=== PATIENT | female | born 1935 | race Caucasian/White ===

== ENCOUNTER 2022-07-23 00:19 | Inpatient (IN) | payer MEDICARE, OTHER ==
[~2022-07-23] VITALS: Ht 147.3 cm; Wt 61.0 kg
--- NOTE | 2022-07-23 00:49 | NUR ---
BIBFAMILY FOR C/O ABD PAIN AND 4 EPISODES OF VOMITING AND NASUEA SINCE 1999. PT AWAKRE AND ALERT BREATHING UNLBAORED -C/P OR SOB. AMBULATORY WITH STEADY GAIT. PLACED ON MONITOR AND V/S WNL.
--- NOTE | 2022-07-23 00:49 | NUR ---
RAC #18G S/L BLOOD COLLECTED AND SENT TO LAB
[2022-07-23] MEDS ORDERED: ONDANSETRON HCL/PF 4 MG/2 ML VIAL ONE (00:51)
[2022-07-23] MEDS ORDERED: MORPHINE SULFATE INJ 4 MG/ML DISP.SYRIN ONE ×2 (00:51→02:51)
[2022-07-23] MEDS ORDERED: ONDANSETRON HCL/PF 4 MG/2 ML VIAL IVP ONE (01:00)
[2022-07-23] MEDS ORDERED: MORPHINE SULFATE INJ 2 MG/ML DISP.SYRIN IV ONE ×2 (01:00→03:00)
[2022-07-23] MEDS ORDERED: IV NS 0.9% 500 ML BAG IV ONE (01:00)
--- NOTE | 2022-07-23 01:03 | NUR ---
URINE COLLECTED AND SENT TO LAB
--- NOTE | 2022-07-23 01:10 | NUR ---
XRAY AT BEDSIDE
[2022-07-23 01:14] LABS: BASOPHILS % (AUTO) 0.2 % (0.0-2.0); EOSINOPHILS % (AUTO) 0.3 % (0.0-6.0); HEMATOCRIT 34 % (33-45); HEMOGLOBIN 11.1 g/dL (11.5-14.8); LYMPHOCYTES # (AUTO) 1.4 K/uL (0.8-4.8); LYMPHOCYTES % (AUTO) 13.8 % (20.0-44.0); MEAN CORPUSCULAR HGB CONC 33 g/dl (31.0-36.0); MEAN CORPUSCULAR VOLUME 99 fL (82-100); MONOCYTES # (AUTO) 0.6 K/uL (0.1-1.30); MONOCYTES % (AUTO) 5.8 % (2.0-12.0); NEUTROPHILS # (AUTO) 8.3 K/uL (1.8-8.9); NEUTROPHILS % (AUTO) 79.9 % (43.0-81.0); PLATELET COUNT (AUTO) 193 K/uL (150-450); RED BLOOD CELL COUNT(AUTO) 3.41 MIL/uL (4.0-5.2); WHITE BLOOD COUNT (AUTO) 10.4 K/uL (4.3-11.0)
--- NOTE | 2022-07-23 01:19 | NUR ---
PT BEING TRANSPORTED TO CT VIA WHEELCHAIR
[2022-07-23 01:20] LABS: CALCIUM, SERUM 9.5 mg/dL (8.5-10.1); CARBON DIOXIDE 26 mmol/L (21-32); CHLORIDE 104 mmol/L (98-107); CREATININE 1.2 mg/dL (0.6-1.3); GLUCOSE 207 mg/dL (74-106); POTASSIUM 4.3 mmol/L (3.5-5.1); SODIUM SERUM 139 mmol/L (136-145); UREA NITROGEN, BLOOD 27 mg/dL (7-18)
[2022-07-23 01:21] LABS: BILIRUBIN,URINE NEGATIVE (NEGATIVE); COLOR,URINE YELLOW (YELLOW); LEUKOCYTE ESTERASE ,URINE NEGATIVE (NEGATIVE); NITRITE, URINE NEGATIVE (NEGATIVE); PROTEIN,URINE 100 mg/dl (NEGATIVE); UGLUCOSE NEGATIVE (NEGATIVE); UROBILINOGEN,URINE 0.2 EU/dL (0.2)
[2022-07-23 01:24] LABS: BACTERIA,URINE Rare /HPF (None Seen); RBC,URINE 0-2 /HPF (0-2); SQUAMOUS EPITHELIAL CELL,UR Few /HPF (None Seen); WBC,URINE 0-2 /HPF (0-3)
[2022-07-23 01:27] LABS: ALANINE AMINOTRANSFERASE 21 U/L (12-78); ALBUMIN 4.5 g/dL (3.4-5.0); ALKALINE PHOSPHATASE 50 U/L (46-116); ASPARTATE AMINOTRANSFERASE 18 U/L (15-37); BILIRUBIN,DIRECT 0.1 mg/dL (0.0-0.2); BILIRUBIN,TOTAL 0.5 mg/dL (0.2-1.0); TOTAL PROTEIN, SERUM 8.2 g/dL (6.4-8.2)
[2022-07-23 01:28] LABS: LIPASE 2768 U/L (73-393)
--- NOTE | 2022-07-23 01:32 | NUR ---
PT RETURNED TO ER BED [address]
--- NOTE | 2022-07-23 01:39 | NUR ---
COVID ANTIGEN SWAB COLLECTED AND SENT TO LAB
[2022-07-23] MEDS ORDERED: ACET-73 PO (01:54)
[2022-07-23] MEDS ORDERED: MECL-159 PO (01:54)
[2022-07-23] MEDS ORDERED: NIFE-34 PO (01:54)
[2022-07-23] MEDS ORDERED: METF-440 PO (01:54)
[2022-07-23] MEDS ORDERED: ATOR40TA PO (01:54)
[2022-07-23] MEDS ORDERED: PROP15DR EACHEYE (01:55)
[2022-07-23] MEDS ORDERED: CALC-1321 PO ×2 (01:55)
[2022-07-23] MEDS ORDERED: CALC500T89 PO (01:55)
[2022-07-23] MEDS ORDERED: FLUT16SP BNOSTRILS (01:55)
[2022-07-23] MEDS ORDERED: SUCR1TAB PO (01:55)
[2022-07-23] MEDS ORDERED: CLOT15CR27 TP (01:55)
[2022-07-23] MEDS ORDERED: OMEP40CA21 PO (01:55)
[2022-07-23] MEDS ORDERED: TRAM50TA2 PO (01:55)
--- NOTE | 2022-07-23 02:01 | NUR ---
MOVE SHEET SUBMITTED
[2022-07-23] MEDS ORDERED: ACETAMINOPHEN 325 MG TABLET PO PRN (03:00)
[2022-07-23] MEDS ORDERED: ONDANSETRON HCL/PF 4 MG/2 ML VIAL IVP PRN (03:00)
[2022-07-23] MEDS ORDERED: ZOLPIDEM TARTRATE 5 MG TABLET PO PRN (03:00)
[2022-07-23] MEDS ORDERED: DEXTROSE 50%-WATER 50 ML DISP.SYRIN IV PRN (03:00)
[2022-07-23] MEDS ORDERED: Z GUARD REMEDY 4 OZ OINT TP PRN (03:00)
[2022-07-23] MEDS ORDERED: INSULIN REGULAR, HUMAN 100 UNIT/ML 3 ML VIAL SQ PRN (03:00)
[2022-07-23] MEDS ORDERED: MORPHINE SULFATE INJ 2 MG/ML DISP.SYRIN IV PRN (03:00)
--- NOTE | 2022-07-23 03:13 | NUR ---
US TECH AT BEDSIDE
[2022-07-23] MEDS: BLOOD SUGAR DIAGNOSTIC 1 EACH STRIP IN SCH ×3 (06:05→17:20)
[2022-07-23] MEDS: IV NS 0.9% 1,000 ML IV PRN (06:05)
--- NOTE | 2022-07-23 08:13 | NUR ---
PT RESTING COMFORTABLE IN BED, FAMILY AT BEDSIDE, ALL NEEDS ARE MET AT THIS TIME.
[2022-07-23] MEDS ORDERED: PANTOPRAZOLE 40 MG VIAL ONE (10:57)
[2022-07-23] MEDS: PANTOPRAZOLE 40 MG VIAL IV SCH (10:58)
--- NOTE | 2022-07-23 11:25 | NUR ---
GOT BED 312-2
--- NOTE | 2022-07-23 13:00 | NUR ---
RN ADMITTING NOTE ADMITTED THIS 87 Y/O FEMALE PATIENT FROM [facility] TRAN[facility]IA [employer] @1230, ACCOMPANIED BY LITHOGRAPHIC PRESS OPERATOR AND DAUGHTER. PATIENT IS AWAKE, ALERT AND ORIENTED X4, VERBALLY RESPONSIVE AND ABLE TO MAKE NEEDS KNOWN. WITH ADMITTING DIAGNOSIS OF ACUTE PANCREATITIS. PT ON ROOM AIR, TOLERATING WELL, NO SOB NOTED, BREATHING EVEN AND UNLABORED. NO SIGNS OF ACUTE DISTRESS NOTED. STILL WITH C/O DISCOMFORT ON ABDOMINAL AREA BUT TOLERABLE. NOTED WITH PERIPHERAL LINE ON RIGHT ANTECUBITAL AREA #20G, INTACT AND PATENT, WITH NS @ 75 ML/HR RUNNING. PATIENT ORIENTED TO ROOM AND STAFF. ROUTINE ADMISSION CARE RENDERED. VITAL SIGNS TAKEN AND RECORDED. BODY ASSESSMENT DONE, SKIN GENERALLY INTACT. NO SKIN ISSUES NOTED. SAFETY MEASURE IN PLACE. BED IN LOWEST AND LOCKED POSITION, SIDE RAILS UP X2, CALL LIGHT PLACED WITHIN EASY REACH. WILL CONTINUE TO MONITOR PATIENT.
--- NOTE | 2022-07-23 16:45 | NUR ---
RN NOTE RECEIVED NEW ORDER FOR CT CHEST WITH CONTRAST, CONSENT OBTAINED FROM PATIENT WITH THE HELP OF TRANSLATION FROM DAUGHTER .
--- NOTE | 2022-07-23 18:35 | NUR ---
RN CLOSING NOTES PATIENT IN BED AWAKE. NO SIGNS OF ACUTE DISTRESS NOTED. REMAINS STABLE ON ROOM AIR. NO SOB NOTED, BREATHING EVEN AND UNLABORED. PATIENT REMAINS ON NPO. IV ACCESS ON RIGHT ANTECUBITAL #20G, INTACT AND PATENT WITH NS @75 ML/HR INFUSING WELL. SAFETY MEASURE MAINTAINED. BED IN LOWEST AND LOCKED POSITION, SIDE RAILS UP X2, CALL LIGHT PLACED WITHIN EASY REACH. WILL ENDORSE TO NEXT SHIFT FOR CONTINUITY OF CARE.
[2022-07-23 20:00] VITALS: BP 166/55
[2022-07-23 20:03] VITALS: BP 166/55
--- NOTE | 2022-07-23 20:25 | NUR ---
RECEIVED PATIENT IN BED FAMILY AT THE BEDSIDE ALERT ORIENTATED X4 SMILING AND CONVERSING WITH THE FAMILY AWARE SHE IS NPO CALL LIGHT WITHIN HERE REACH
[2022-07-23] MEDS: POLYVINYL ALCOHOL 15 ML BOTTLE EACHEYE SCH (20:56)
[2022-07-24] MEDS: BLOOD SUGAR DIAGNOSTIC 1 EACH STRIP IN SCH ×4 (00:10→17:33)
[2022-07-24] MEDS: IV NS 0.9% 1,000 ML IV PRN ×2 (03:29→17:20)
--- NOTE | 2022-07-24 04:35 | NUR ---
CLOSING NOTES; ALERT AND ORIENTATED X3 NPO THIS 12 HOURS ORDERED BS ACTIVE VIA AUSCULTATION NO C/O PAIN THIS 12 HOURS SLEPT SOUNDLY
[2022-07-24 06:42] LABS: BASOPHILS % (AUTO) 0.4 % (0.0-2.0); HEMATOCRIT 27 % (33-45); HEMOGLOBIN 9.4 g/dL (11.5-14.8); LYMPHOCYTES # (AUTO) 1.7 K/uL (0.8-4.8); LYMPHOCYTES % (AUTO) 36.1 % (20.0-44.0); MEAN CORPUSCULAR HGB CONC 35 g/dl (31.0-36.0); MEAN CORPUSCULAR VOLUME 99 fL (82-100); MONOCYTES # (AUTO) 0.5 K/uL (0.1-1.30); MONOCYTES % (AUTO) 10.9 % (2.0-12.0); NEUTROPHILS # (AUTO) 2.4 K/uL (1.8-8.9); NEUTROPHILS % (AUTO) 51.6 % (43.0-81.0); PLATELET COUNT (AUTO) 138 K/uL (150-450); RED BLOOD CELL COUNT(AUTO) 2.72 MIL/uL (4.0-5.2); WHITE BLOOD COUNT (AUTO) 4.6 K/uL (4.3-11.0)
[2022-07-24 07:00] LABS: CREATININE 0.8 mg/dL (0.6-1.3); MAGNESIUM 2.1 mg/dL (1.8-2.4); PHOSPHORUS 3.1 mg/dL (2.5-4.9); POTASSIUM 4.3 mmol/L (3.5-5.1)
[2022-07-24 07:32] LABS: THYROID STIMULATING HORMONE 4.304 uIU/mL (0.358-3.74)
--- NOTE | 2022-07-24 07:54 | NUR ---
RN OPENING NOTE RECEIVED ON BED ASLEEP BUT AROUSABLE , A/0X 4 , VERBALLY RESPONSIVE AND ABLE TO MAKE NEEDS KNOWN . NO SOB OR DISTRESS NOTED . NO C/O DISCOMFORT AT THIS TIME NOTED WITH PERIPHERAL LINE ON RAC #20G, INTACT AND PATENT, WITH NS @ 75 ML/HR RUNNING. PATIENT . VITAL SIGNS TAKEN AND RECORDED . SAFETY MEASURE IN PLACE. BED IN LOWEST AND LOCKED POSITION, SIDE RAILS UP X2, CALL LIGHT PLACED WITHIN EASY REACH. WILL CONTINUE TO MONITOR PATIENT.
[2022-07-24 08:00] VITALS: BP 176/54
[2022-07-24] MEDS: CHOLECALCIFEROL 1,000 UNIT TABLET (VIT D3) PO SCH (08:34)
[2022-07-24] MEDS: ATORVASTATIN 40 MG TABLET PO SCH (08:34)
[2022-07-24] MEDS: NIFEdipine XL (30MG) 30 MG TAB PO SCH (08:34)
[2022-07-24] MEDS: CALCIUM CARBONATE (1250) 500 MG TABLET PO SCH (08:34)
[2022-07-24] MEDS: SUCRALFATE 1 G TABLET PO SCH ×3 (08:34→17:31)
[2022-07-24] MEDS: MECLIZINE HCL 25 MG TABLET PO SCH ×2 (08:34→17:31)
[2022-07-24] MEDS: PANTOPRAZOLE 40 MG VIAL IV SCH (08:34)
[2022-07-24] MEDS: TRAMADOL HCL 50 MG TABLET PO SCH (08:36)
[2022-07-24] MEDS: POLYVINYL ALCOHOL 15 ML BOTTLE EACHEYE SCH ×4 (08:53→21:59)
[2022-07-24] MEDS: CLOTRIMAZOLE 1% 15 GM TUBE TP SCH ×2 (08:53→17:35)
[2022-07-24] MEDS: FLUTICASONE PROPIONATE 16 GM BOTTLE NS SCH (08:53)
[2022-07-24] MEDS ORDERED: VITAMIN D3 PO SCH ×2 (09:00)
[2022-07-24] MEDS ORDERED: [UNRECOGNIZED DRUG - OTHER] PO SCH ×2 (09:00)
[2022-07-24] MEDS ORDERED: CALCIUM CARBONATE PO SCH ×2 (09:00)
--- NOTE | 2022-07-24 14:10 | NUR ---
RN NOTES PATIENT WENT TO RADIOLOGY FOR CT OF THE CHEST WITH CONTRAST Addendum: 07/25/22 at 1021 by CHAU BIRD RN ADDENDUM : PROCEDURE WAS NOT DONE YESTERDAY , WRONG DOCUMENTATION
[2022-07-24 16:00] VITALS: BP 144/42
--- NOTE | 2022-07-24 18:31 | NUR ---
RN CLOSING NOTES PATIENT ON BED AWAKE , KOREAN SPEAKING , A/0X 4 , VERBALLY RESPONSIVE AND ABLE TO MAKE NEEDS KNOWN . ALL DUE MEDS GIVEN ORDERED , BLOOD SUGAR WAS CHECK AND NO INSULIN WAS GIVEN , NO SOB OR DISTRESS NOTED . NO C/O DISCOMFORT AT THIS TIME NOTED WITH PERIPHERAL LINE ON RIGHT HAND #22 G, INTACT AND PATENT, WITH NS @ 75 ML/HR RUNNING. PATIENT DIAT WAS CHANGED TO CLEAR LIQUID . VITAL SIGNS TAKEN AND RECORDED . SAFETY MEASURE IN PLACE. BED IN LOWEST AND LOCKED POSITION, SIDE RAILS UP X2, CALL LIGHT PLACED WITHIN EASY REACH. WILL CONTINUE TO MONITOR PATIENT.
--- NOTE | 2022-07-24 19:35 | NUR ---
MS RN OPENING NOTE RECEIVED PATIENT IN BED; AWAKE, ALERT AND ORIENTED X 4. BREATHING EVEN AND UNLABORED. ON ROOM AIR; TOLERATING WELL. NOT IN ANY FORM OF RESPIRATORY DISTRESS. NO S/SX OF PAIN OR DISCOMFORT NOTED AT THIS TIME. WITH IV ACCESS ON RIGHT HAND 22g: PATENT AND INTACT INFUSING WITH NS 1L RUNNING @ 75 ML/HR; FLUSHES WELL. NO INFILTRATION NOTED. ABLE TO MAKE NEEDS KNOWN. SAFETY MEASURES IMPLEMENTED: CALL LIGHT AND TABLE WITHIN REACH, SIDE RAILS UP X 2, BED IN LOWEST LOCKED POSITION. WILL CONTINUE TO MONITOR.
[2022-07-24 20:00] VITALS: BP 135/61
[2022-07-24] MEDS ORDERED: ENOXAPARIN SODIUM 40 MG/0.4 ML DISP.SYRIN SQ SCH (21:00)
--- NOTE | 2022-07-25 00:24 | NUR ---
RN NOTE BLOOD SUGAR CHECKED - 82 MG/DL; NO INSULIN COVERAGE GIVEN. OFFERED SNACKS; ABLE TO DRINK 240 ML OF APPLE JUICE. WILL CONTINUE TO MONITOR.
[2022-07-25] MEDS: BLOOD SUGAR DIAGNOSTIC 1 EACH STRIP IN SCH ×3 (00:28→11:40)
--- NOTE | 2022-07-25 05:59 | NUR ---
RN NOTE BLOOD SUGAR CHECKED - 81 MG/DL; NO INSULIN COVERAGE GIVEN.
--- NOTE | 2022-07-25 06:50 | NUR ---
MS RN CLOSING NOTE PATIENT IN BED; AWAKE, A/O X 4. STABLE ON ROOM AIR. RESPIRATION EVEN AND UNLABORED. IN NO ACUTE DISTRESS. NO C/O PAIN OR DISCOMFORT AT THIS TIME. WITH IV ACCESS ON RIGHT HAND 22g: PATENT AND INTACT INFUSING WITH NS 1L RUNNING @ 75 ML/HR; FLUSHES WELL. NO INFILTRATION NOTED. ALL DUE MEDS GIVEN. ALL NEEDS ATTENDED. SAFETY MEASURES IN PLACE: CALL LIGHT AND TABLE WITHIN REACH, SIDE RAILS UP X 2, BED IN LOWEST LOCKED POSITION. ENDORSED TO MORNING SHIFT FOR CHUCK.
[2022-07-25 07:05] LABS: BASOPHILS % (AUTO) 0.4 % (0.0-2.0); EOSINOPHILS % (AUTO) 2.1 % (0.0-6.0); HEMATOCRIT 29 % (33-45); HEMOGLOBIN 9.4 g/dL (11.5-14.8); LYMPHOCYTES # (AUTO) 1.9 K/uL (0.8-4.8); LYMPHOCYTES % (AUTO) 33.1 % (20.0-44.0); MEAN CORPUSCULAR HGB CONC 33 g/dl (31.0-36.0); MEAN CORPUSCULAR VOLUME 99 fL (82-100); MONOCYTES # (AUTO) 0.6 K/uL (0.1-1.30); MONOCYTES % (AUTO) 9.8 % (2.0-12.0); NEUTROPHILS # (AUTO) 3.2 K/uL (1.8-8.9); NEUTROPHILS % (AUTO) 54.6 % (43.0-81.0); PLATELET COUNT (AUTO) 145 K/uL (150-450); RED BLOOD CELL COUNT(AUTO) 2.89 MIL/uL (4.0-5.2); WHITE BLOOD COUNT (AUTO) 5.8 K/uL (4.3-11.0)
[2022-07-25 07:13] LABS: CALCIUM, SERUM 8.2 mg/dL (8.5-10.1); CREATININE 0.9 mg/dL (0.6-1.3); MAGNESIUM 2.1 mg/dL (1.8-2.4); PHOSPHORUS 2.7 mg/dL (2.5-4.9)
--- NOTE | 2022-07-25 07:30 | NUR ---
RN OPENING NOTE RECEIVED ON BED AWAKE , MAORI SPEAKING , A/0X 4 , VERBALLY RESPONSIVE AND ABLE TO MAKE NEEDS KNOWN . NO SOB OR DISTRESS NOTED . NO C/O DISCOMFORT AT THIS TIME NOTED WITH PERIPHERAL LINE ON R HAND #22 G, INTACT AND PATENT, WITH NS @ 75 ML/HR RUNNING. PATIENT . VITAL SIGNS TAKEN AND RECORDED . SAFETY MEASURE IN PLACE. BED IN LOWEST AND LOCKED POSITION, SIDE RAILS UP X2, CALL LIGHT PLACED WITHIN EASY REACH. WILL CONTINUE TO MONITOR PATIENT.
[2022-07-25 08:00] VITALS: BP 111/63
[2022-07-25 08:06] LABS: AFP, TUMOR MARKER 1.9 ng/mL (0.0-8.7); CARBOHYDRATE AG 19-9 11 U/mL (0-35); IMMUNOGLOBULIN A, SERUM 208 mg/dL (64-422); IMMUNOGLOBULIN G, SERUM 961 mg/dL (586-1602); IMMUNOGLOBULIN M, SERUM 42 mg/dL (26-217)
[2022-07-25] MEDS: PANTOPRAZOLE 40 MG VIAL IV SCH (08:43)
[2022-07-25] MEDS: POLYVINYL ALCOHOL 15 ML BOTTLE EACHEYE SCH ×2 (08:43→12:15)
[2022-07-25 08:44] VITALS: BP 111/63
[2022-07-25] MEDS: ATORVASTATIN 40 MG TABLET PO SCH (08:44)
[2022-07-25] MEDS: NIFEdipine XL (30MG) 30 MG TAB PO SCH (08:44)
[2022-07-25] MEDS: FLUTICASONE PROPIONATE 16 GM BOTTLE NS SCH (08:44)
[2022-07-25] MEDS: MECLIZINE HCL 25 MG TABLET PO SCH (08:45)
[2022-07-25] MEDS: CALCIUM CARBONATE (1250) 500 MG TABLET PO SCH (08:45)
[2022-07-25] MEDS: SUCRALFATE 1 G TABLET PO SCH ×2 (08:45→12:16)
[2022-07-25] MEDS: TRAMADOL HCL 50 MG TABLET PO SCH (08:45)
[2022-07-25] MEDS: CHOLECALCIFEROL 1,000 UNIT TABLET (VIT D3) PO SCH (08:45)
[2022-07-25] MEDS: CLOTRIMAZOLE 1% 15 GM TUBE TP SCH (09:25)
[2022-07-25] MEDS: IV NS 0.9% 1,000 ML IV PRN (09:34)
--- NOTE | 2022-07-25 10:21 | NUR ---
RN NOTES RADIOLOGY CALLED AND THEY WILL DO THE CT CHEST WITH CONTRAST TODAY
[2022-07-25] MEDS ORDERED: IOHEXOL-300 100 ML VIAL IV ONE (10:32)
[2022-07-25] MEDS ORDERED: IV NS 0.9% 250 ML IV ONE (10:32)
--- NOTE | 2022-07-25 14:00 | NUR ---
RN NOTES PATIENT WAS ABOUT TO BE DISCHARGED AND WAS WITH ORDER FOR DOPPLER STUDY ON BOTH LOWER EXTREMITY PATIENT C/O OF APIN ON LOWER LEG
--- NOTE | 2022-07-25 15:00 | NUR ---
RN NOTES DOPPLER VENOUS STUDY WAS DONE BEFOR PATIENT WILL BE DISCHARGE AND WAITING FOR THE RESULT
--- NOTE | 2022-07-25 16:00 | NUR ---
RN NOTES DOPPLER STUDY RESULTED AND WITH RESULT OF NO DVT AND FAMILY GIVEN A COPY AND READY FOR DISCHARGE AND FAMILY AWARE
--- NOTE | 2022-07-25 16:30 | NUR ---
RELATIONSHIP CONSULTANT NOTES: PATIENT WAS SEEN WITH DR PERRY AND WITH ORDER FOR DISCHARGE TODAY , ALL DUE MEDS GIVEN ORDERED ,ALL DISCHARGED PAPERS WHERE PREPARED AND DISCHARGE INSTRUCTION PROVIDED TO THE FAMILY MEMBER REGARDING WOUND MANAGEMENT , SAFETY PRECAUTIONS REGARDING PAIN ON THE LOWER LEG , FOLLOW UP WITH PCP AND ALSO TO MONITOR FOR ANY CHANGE OF CONDITION AND WHEN TO CALL 911 IN CASE OF EMERGENCY . IV ACCESS AT R HAND WAS REMOVED . NO SOB DISTRESS NOTED AT THIS TIME , NO C/O OF PAIN AND DISCOMFORT ,WHEN PATIENT WAS DISCHARGED AND FAMILY PROVIDED TRANSPORTATION VIA PRIVATE CAR, ASSISTED PATIENT TO THE LOBBY TOGETHER WITH THE FAMILY .
[2022-07-26 11:07] LABS: *SPE A/G RATIO 1.3 (0.7-1.7); *SPE ALPHA-1-GLOBULIN 0.2 g/dL (0.0-0.4); *SPE ALPHA-2-GLOBULIN 0.6 g/dL (0.4-1.0); *SPE BETA GLOBULIN 0.7 g/dL (0.7-1.3); *SPE M-SPIKE Not Observed g/dL (Not Observed)
== END 2022-07-25 16:45 | disposition home or self-care (01) | DRG 440 ==
LOC: ER 02:23 → TRANSITION 04:09 → MED 11:27
PROVIDERS: ADMIT Student in an Organized Health Care Education/Training Program; ATTEND Student in an Organized Health Care Education/Training Program
DX: K85.90 Acute pancreatitis without necrosis or infection, unspecified (principal); I10 Essential (primary) hypertension; E11.9 Type 2 diabetes mellitus without complications; Z20.822 Contact with and (suspected) exposure to COVID-19; K76.0 Fatty (change of) liver, not elsewhere classified; M19.90 Unspecified osteoarthritis, unspecified site; M81.0 Age-related osteoporosis without current pathological fracture; Z98.890 Other specified postprocedural states; Z79.84 Long term (current) use of oral hypoglycemic drugs; Z79.899 Other long term (current) drug therapy; K80.20 Calculus of gallbladder without cholecystitis without obstruction; R91.1 Solitary pulmonary nodule; K86.89 Other specified diseases of pancreas; E86.0 Dehydration; R79.89 Other specified abnormal findings of blood chemistry; D64.9 Anemia, unspecified; E78.5 Hyperlipidemia, unspecified; K57.90 Diverticulosis of intestine, part unspecified, without perforation or abscess without bleeding
CPT/HCPCS: 36415; 71045-TC; 71260-TC; 74181-TC; 76705-TC; 80048-TC; 80076-TC; 81001; 82105; 82378; 82607-TC; 82728-TC; 82784; 82962-TC; 83540-TC; 83690-TC; 83735-TC; 84100-TC; 84155; 84165; 84439-TC; 84443-TC; 84484-TC; 85025-TC; 85730-TC; 86301; 86334; 87081-TC; 93970-TC; C9113; C9803; G0378; J1650; J1815; J2270; J2405; J7030; J7050; J8597; Q9967

== ENCOUNTER 2023-02-04 20:40 | Emergency (ER) | payer MEDICARE, OTHER ==
[~2023-02-04] VITALS: Ht 137.2 cm; Wt 63.7 kg
[~2023-02-04 20:40] MED LIST: ACET-73 PO; ATOR40TA PO; CALC-1321 PO; CALC500T89 PO; CLOT15CR27 TP; FLUT16SP BNOSTRILS; MECL-159 PO; METF-440 PO; NIFE-34 PO; OMEP40CA21 PO; PROP15DR EACHEYE; SUCR1TAB PO; TRAM50TA2 PO
--- NOTE | 2023-02-04 21:10 | NUR ---
JUAN FROM HOME, [facility] 2 DAYS AGO, TRIPPED ON CARPET, SUSTAINING ABRASION ON NASAL AREA AND SORES INSIDE MOUTH -LOC, -NEVAREZ
--- NOTE | 2023-02-04 21:13 | NUR ---
PT TAKEN TO CT
--- NOTE | 2023-02-04 21:29 | NUR ---
PT BACK FROM CT
[2023-02-04 23:46] VITALS: BP 145/72
--- NOTE | 2023-02-04 23:46 | NUR ---
Patient discharged to home in stable condition. Written and verbal after care instructions given. Patient verbalizes understanding of instruction.
== END 2023-02-04 23:47 | disposition home or self-care (01) ==
LOC: ER 21:02
DX: S00.83XA Contusion of other part of head, initial encounter (principal); S00.31XA Abrasion of nose, initial encounter; S09.8XXA Other specified injuries of head, initial encounter; I10 Essential (primary) hypertension; E11.9 Type 2 diabetes mellitus without complications; Z98.890 Other specified postprocedural states; Z79.899 Other long term (current) drug therapy; Z79.84 Long term (current) use of oral hypoglycemic drugs; W01.0XXA Fall on same level from slipping, tripping and stumbling without subsequent striking against object, initial encounter; Y93.89 Activity, other specified; Y92.89 Other specified places as the place of occurrence of the external cause; Y99.8 Other external cause status
CPT/HCPCS: 70450-TC; 70486-TC; 72125-TC

== ENCOUNTER 2024-09-28 17:45 | Inpatient (IN) | payer MEDICARE, OTHER ==
[~2024-09-28] VITALS: Ht 152.4 cm; Wt 55.8 kg
[2024-09-28] MEDS ORDERED: METOCLOPRAMIDE HCL 10 MG/2 ML VIAL ONE (18:37)
[2024-09-28 18:52] LABS: BASOPHILS % (AUTO) 0.6 % (0.0-2.0); EOSINOPHILS # (AUTO) 0.1 K/uL (0.0-0.7); HEMATOCRIT 33 % (33-45); HEMOGLOBIN 10.8 g/dL (11.5-14.8); LYMPHOCYTES # (AUTO) 2.2 K/uL (0.8-4.8); LYMPHOCYTES % (AUTO) 33.4 % (20.0-44.0); MEAN CORPUSCULAR HEMOGLOBIN 34 PG (26.0-33.0); MEAN CORPUSCULAR HGB CONC 33 g/dl (31.0-36.0); MEAN CORPUSCULAR VOLUME 102 fL (82-100); MONOCYTES # (AUTO) 0.5 K/uL (0.1-1.30); MONOCYTES % (AUTO) 8.5 % (2.0-12.0); NEUTROPHILS # (AUTO) 3.6 K/uL (1.8-8.9); NEUTROPHILS % (AUTO) 55.5 % (43.0-81.0); PLATELET COUNT (AUTO) 169 K/uL (150-450); RED CELL DISTRIBUTION WIDTH 13.9 % (11.5-15.0); WHITE BLOOD COUNT (AUTO) 6.5 K/uL (4.3-11.0)
[2024-09-28 19:01] LABS: CALCIUM, SERUM 9.4 mg/dL (8.5-10.1); CARBON DIOXIDE 28 mmol/L (21-32); CHLORIDE 106 mmol/L (98-107); CREATININE 1.3 mg/dL (0.6-1.3); GLUCOSE 161 mg/dL (74-106); POTASSIUM 4.1 mmol/L (3.5-5.1); SODIUM SERUM 143 mmol/L (136-145); UREA NITROGEN, BLOOD 22 mg/dL (7-18)
[2024-09-28 19:08] LABS: ALANINE AMINOTRANSFERASE 14 U/L (12-78); ALBUMIN 4.1 g/dL (3.4-5.0); ALKALINE PHOSPHATASE 48 U/L (46-116); ASPARTATE AMINOTRANSFERASE 19 U/L (15-37); BILIRUBIN,DIRECT 0.1 mg/dL (0.0-0.2); BILIRUBIN,TOTAL 0.4 mg/dL (0.2-1.0); TOTAL PROTEIN, SERUM 7.9 g/dL (6.4-8.2)
[2024-09-28 19:10] LABS: LACTIC ACID 1.8 mmol/L (0.4-2.0)
[2024-09-28] MEDS: IV NS 0.9% 1,000 ML BAG IV ONE (19:10)
[2024-09-28] MEDS: METOCLOPRAMIDE HCL 10 MG/2 ML VIAL IV ONE (19:11)
[2024-09-28] MEDS ORDERED: ACETAMINOPHEN 325 MG TABLET PO PRN (22:00)
[2024-09-28] MEDS ORDERED: MAGNESIUM HYDROXIDE 30 ML UDC PO PRN (22:00)
[2024-09-28] MEDS ORDERED: Z GUARD REMEDY 4 OZ OINT TP PRN (22:00)
[2024-09-28] MEDS ORDERED: MAG HYDROX/AL HYDROX/SIMETH 30 ML UDC PO PRN (22:00)
[2024-09-28] MEDS ORDERED: ONDANSETRON HCL/PF 4 MG/2 ML VIAL IVP PRN (22:00)
[2024-09-28 23:00] VITALS: BP 173/77; TEMP 97.9; O2SAT 96
[2024-09-29] VITALS (9 sets, daily range): BP systolic 136–182; BP diastolic 41–62; TEMP 97.9–98.4; O2SAT 97–100
[2024-09-29 08:11] LABS: BASOPHILS % (AUTO) 0.2 % (0.0-2.0); EOSINOPHILS # (AUTO) 0.1 K/uL (0.0-0.7); EOSINOPHILS % (AUTO) 2.2 % (0.0-6.0); HEMATOCRIT 28 % (33-45); HEMOGLOBIN 9.3 g/dL (11.5-14.8); LYMPHOCYTES # (AUTO) 2.2 K/uL (0.8-4.8); LYMPHOCYTES % (AUTO) 36.5 % (20.0-44.0); MEAN CORPUSCULAR HEMOGLOBIN 34 PG (26.0-33.0); MEAN CORPUSCULAR HGB CONC 33 g/dl (31.0-36.0); MEAN CORPUSCULAR VOLUME 102 fL (82-100); MONOCYTES # (AUTO) 0.7 K/uL (0.1-1.30); MONOCYTES % (AUTO) 11.4 % (2.0-12.0); NEUTROPHILS % (AUTO) 49.7 % (43.0-81.0); PLATELET COUNT (AUTO) 138 K/uL (150-450); RED BLOOD CELL COUNT(AUTO) 2.75 MIL/uL (4.0-5.2); RED CELL DISTRIBUTION WIDTH 14.2 % (11.5-15.0)
[2024-09-29] MEDS: PANTOPRAZOLE 40 MG TABLET.DR PO SCH (09:23)
[2024-09-29 09:53] LABS: APPEARANCE,URINE CLEAR (CLEAR); BILIRUBIN,URINE NEGATIVE (NEGATIVE); BLOOD, URINE NEGATIVE Ery/uL (NEGATIVE); COLOR,URINE YELLOW (YELLOW); KETONES,URINE NEGATIVE (NEGATIVE); LEUKOCYTE ESTERASE ,URINE NEGATIVE (NEGATIVE); NITRITE, URINE NEGATIVE (NEGATIVE); PROTEIN,URINE NEGATIVE (NEGATIVE); UGLUCOSE NEGATIVE (NEGATIVE); UROBILINOGEN,URINE 0.2 EU/dL (0.2)
[2024-09-29 11:01] LABS: ALBUMIN 3.3 g/dL (3.4-5.0); BILIRUBIN,DIRECT 0.1 mg/dL (0.0-0.2); BILIRUBIN,TOTAL 0.3 mg/dL (0.2-1.0); CALCIUM, SERUM 9.2 mg/dL (8.5-10.1); CREATININE 0.9 mg/dL (0.6-1.3); MAGNESIUM 2.1 mg/dL (1.8-2.4); PHOSPHORUS 3.1 mg/dL (2.5-4.9); POTASSIUM 4.3 mmol/L (3.5-5.1); TOTAL PROTEIN, SERUM 6.2 g/dL (6.4-8.2)
[2024-09-29 11:14] LABS: EOSINOPHILS % (MANUAL) 2 % (0-4); LYMPHOCYTES % (MANUAL) 37 % (16-48); MONOCYTES % (MANUAL) 11 % (0-11.0); NEUTROPHILS % (MANUAL) 50 (42-76); PLATELET ESTIMATE DECREASED
[2024-09-29 11:15] LABS: ANISOCYTOSIS 1+; TEAR DROP CELLS 1+
[2024-09-29] MEDS ORDERED: ATOR10TA PO (13:38)
[2024-09-29] MEDS ORDERED: FLUT16SP16 NS (13:38)
[2024-09-29] MEDS ORDERED: NIFE30TA91 PO (13:38)
[2024-09-29] MEDS ORDERED: CHLO25TA2 PO (13:38)
[2024-09-29] MEDS ORDERED: DICL100G26 TP (13:38)
[2024-09-29] MEDS ORDERED: KERENDIA PO (13:38)
[2024-09-29] MEDS ORDERED: ALEN70TA80 PO (13:38)
[2024-09-29] MEDS ORDERED: CALC-1026 PO (13:38)
[2024-09-29] MEDS ORDERED: CARV12.52 PO (13:38)
[2024-09-29] MEDS ORDERED: ACET-2030 PO (13:38)
[2024-09-29] MEDS ORDERED: BRIM5DRO2 RIGHTEYE (13:38)
[2024-09-29] MEDS ORDERED: CHOL100043 PO (13:38)
[2024-09-29] MEDS: CARVEDILOL 12.5 MG TABLET PO SCH (17:59)
[2024-09-30] VITALS: BP 160/52; TEMP 98.2; O2SAT 99
[2024-09-30 05:00] VITALS: BP 140/54; TEMP 98.4
[2024-09-30 06:00] VITALS: BP_SYST 140; BP_SYST 172; BP_SYST 174; BP_DIAS 50; BP_DIAS 54; TEMP 98.4; O2SAT 99
[2024-09-30] MEDS ORDERED: OMEPRAZOLE 20 MG CAPSULE.DR PO SCH (07:30)
[2024-09-30] MEDS: LEVOTHYROXINE SODIUM 25 MCG TABLET PO SCH (07:41)
[2024-09-30 08:00] VITALS: BP 194/75; TEMP 97.9; O2SAT 99
[2024-09-30] MEDS: ATORVASTATIN 10 MG TABLET PO SCH (08:27)
[2024-09-30] MEDS: FLUTICASONE PROPIONATE 16 GM BOTTLE NS SCH (08:29)
[2024-09-30] MEDS: NIFEdipine XL (30MG) 30 MG TAB PO SCH (08:30)
[2024-09-30 08:42] LABS: BASOPHILS % (AUTO) 0.6 % (0.0-2.0); EOSINOPHILS # (AUTO) 0.1 K/uL (0.0-0.7); EOSINOPHILS % (AUTO) 2.1 % (0.0-6.0); HEMATOCRIT 28 % (33-45); HEMOGLOBIN 9.3 g/dL (11.5-14.8); LYMPHOCYTES # (AUTO) 2.3 K/uL (0.8-4.8); LYMPHOCYTES % (AUTO) 43.2 % (20.0-44.0); MEAN CORPUSCULAR HEMOGLOBIN 34 PG (26.0-33.0); MEAN CORPUSCULAR HGB CONC 34 g/dl (31.0-36.0); MEAN CORPUSCULAR VOLUME 100 fL (82-100); MONOCYTES # (AUTO) 0.6 K/uL (0.1-1.30); MONOCYTES % (AUTO) 11.1 % (2.0-12.0); NEUTROPHILS # (AUTO) 2.3 K/uL (1.8-8.9); PLATELET COUNT (AUTO) 139 K/uL (150-450); RED BLOOD CELL COUNT(AUTO) 2.75 MIL/uL (4.0-5.2); WHITE BLOOD COUNT (AUTO) 5.4 K/uL (4.3-11.0)
[2024-09-30 09:05] LABS: CALCIUM, SERUM 8.8 mg/dL (8.5-10.1); CREATININE 1.1 mg/dL (0.6-1.3); PHOSPHORUS 3.6 mg/dL (2.5-4.9); POTASSIUM 4.9 mmol/L (3.5-5.1)
[2024-09-30 16:00] VITALS: BP 105/42; TEMP 98.2; O2SAT 98
[2024-09-30 16:15] VITALS: BP 105/60
[2024-09-30] MEDS ORDERED: LEVO25TA7 PO (16:44)
== END 2024-09-30 19:09 | disposition home or self-care (01) | DRG 304 ==
LOC: ER 17:50 → TELE 22:30
PROVIDERS: ADMIT Nurse Practitioner Family; ATTEND Nurse Practitioner Acute Care
DX: I16.0 Hypertensive urgency (principal); I50.33 Acute on chronic diastolic (congestive) heart failure; N17.9 Acute kidney failure, unspecified; H81.10 Benign paroxysmal vertigo, unspecified ear; I11.0 Hypertensive heart disease with heart failure; E11.9 Type 2 diabetes mellitus without complications; M81.0 Age-related osteoporosis without current pathological fracture; M19.90 Unspecified osteoarthritis, unspecified site; W01.198A Fall on same level from slipping, tripping and stumbling with subsequent striking against other object, initial encounter; Y92.9 Unspecified place or not applicable; S51.012A Laceration without foreign body of left elbow, initial encounter; Z79.51 Long term (current) use of inhaled steroids; Z79.84 Long term (current) use of oral hypoglycemic drugs; Z79.899 Other long term (current) drug therapy; E03.9 Hypothyroidism, unspecified; E78.5 Hyperlipidemia, unspecified; I25.10 Atherosclerotic heart disease of native coronary artery without angina pectoris; D69.6 Thrombocytopenia, unspecified; D63.8 Anemia in other chronic diseases classified elsewhere; R26.9 Unspecified abnormalities of gait and mobility; E86.0 Dehydration; I95.1 Orthostatic hypotension
CPT/HCPCS: 36415; 70450-TC; 71045-TC; 80048-TC; 80076-TC; 83605-TC; 83735-TC; 83880; 84100-TC; 84443-TC; 84484-TC; 85025-TC; 87040-TC; 87086-TC; 97116-TC; A6403; G0378; J2765; J7030